=== PATIENT | male | born 1990 | race African-American/Black ===

== ENCOUNTER 2021-12-11 20:23 | Emergency (ER) | payer MEDICAID ==
[~2021-12-11] VITALS: Ht 172.7 cm; Wt 84.0 kg
[2021-12-11 20:26] VITALS: BP 161/97
== END 2021-12-11 23:01 | disposition left against medical advice (07) ==
LOC: ER 20:23
DX: Z53.21 Procedure and treatment not carried out due to patient leaving prior to being seen by health care provider (principal)
CPT/HCPCS: 93005

== ENCOUNTER 2023-08-27 11:10 | Emergency (ER) | payer MEDICAID ==
[~2023-08-27] VITALS: Ht 177.8 cm; Wt 84.0 kg
[2023-08-27 11:20] VITALS: O2SAT 100
[2023-08-27 11:48] LABS: BASOPHILS % 0.5 % (0.0-2.0); EOSINOPHILS % 1.3 % (0.0-5.0); HEMATOCRIT. 42.6 % (42.0-52.0); HEMOGLOBIN. 14.9 g/dL (14.0-18.0); LYMPHOCYTES % 35.9 % (20.0-50.0); MEAN CORPUSCULAR HGB CONC 34.9 g/dL (31.0-37.0); MEAN CORPUSCULAR VOLUME 88.7 fL (80.0-94.0); MEAN PLATELET VOLUME 7.5 fl (7.4-10.4); MONOCYTES % 7.6 % (2.0-8.0); NEUTROPHILS % 54.7 % (40.0-76.0); PLATELET 247 x1000/uL (130-400); RED CELL DISTRIBUTION WIDTH 13.1 % (11.6-14.6)
[2023-08-27 12:04] LABS: ALANINE AMINOTRANSFERASE 41 IU/L (10-49); ALBUMIN 4.5 g/dL (3.2-4.8); ASPARTATE AMINOTRANSFERASE 28 IU/L (<34); BILIRUBIN TOTAL 0.4 mg/dL (0.1-1.0); CALCIUM 8.7 mg/dL (8.7-10.4); CARBON DIOXIDE 29 mEq/L (21-32); CHLORIDE 108 mEq/L (98-107); CREATININE 0.9 mg/dL (0.6-1.3); GLUCOSE 113 mg/dL (70-105); POTASSIUM 3.6 mEq/L (3.5-5.1); PROTEIN TOTAL 6.9 g/dL (6.0-8.3); SODIUM 142 mEq/L (136-145); UREA NITROGEN BLOOD 10 mg/dL (9-23)
[2023-08-27 12:05] LABS: TROPONIN I HIGH SENSITIVITY < 4 ng/L (3.0-53)
[2023-08-27] MEDS ORDERED: TOPUD MT (14:40)
[2023-08-27] MEDS ORDERED: IBUP-1523 MT (14:40)
[2023-08-27 15:02] VITALS: BP 122/80; PULSE 65; RESP 20; TEMP 98.2
== END 2023-08-27 15:28 | disposition home or self-care (01) ==
LOC: ER 11:10
DX: R07.89 Other chest pain (principal)
CPT/HCPCS: 36415; 71045; 80053; 83880; 84484; 85025; 93005; 99285

== ENCOUNTER 2024-05-24 23:22 | Emergency (ER) | payer MEDICAID, OTHER ==
[~2024-05-24] VITALS: Ht 175.3 cm; Wt 86.6 kg
[~2024-05-24 23:22] MED LIST: IBUP-1523 MT; TOPUD MT
[2024-05-24 23:53] VITALS: O2SAT 99
[2024-05-25] MEDS ORDERED: BACITRACIN ZINC OINT UDPKT TOP ONE (02:15)
[2024-05-25] MEDS ORDERED: LIDOCAINE HCL 1% 20ML VIAL INFIL ONE (02:15)
[2024-05-25] MEDS ORDERED: IBUP-2028 MT (03:01)
[2024-05-25] MEDS ORDERED: BO1 TP (03:01)
[2024-05-25 03:36] VITALS: BP 125/79; PULSE 59; RESP 14; TEMP 36.78072; O2SAT 98
== END 2024-05-25 03:20 | disposition home or self-care (01) ==
LOC: ER 23:22
DX: S61.412A Laceration without foreign body of left hand, initial encounter (principal); W26.0XXA Contact with knife, initial encounter; Y93.89 Activity, other specified; Y92.89 Other specified places as the place of occurrence of the external cause; Y99.8 Other external cause status
CPT/HCPCS: 12005; 99283